=== PATIENT | female | born 1960 | race Two or more races ===

== ENCOUNTER 2023-10-04 09:27 | Day surgery (SDC) | payer OTHER ==
[2023-10-02 08:52] LABS: HEMATOCRIT 36.9 % (36.0-45.00); HEMOGLOBIN 12.2 g/dL (12.0-15.00); MEAN CELL VOLUME 83.3 fL (80.00-100.00); MEAN CORPUSCULAR HEMOGLOBIN 27.6 pg (27.00-32.0); MEAN CORPUSCULAR HGB CONC 33.1 g/dl (32.0-36.0); PLATELET COUNT 277 K/uL (150-450); RED BLOOD COUNT 4.43 M/uL (4.00-6.00)
[2023-10-02 09:18] LABS: URINE APPEARANCE Clear; URINE BILIRRUBIN Negative (NEGATIVE); URINE BLOOD Trace; URINE COLOR Yellow; URINE GLUCOSE Negative (NEGATIVE); URINE LEUKOCYTE Small; URINE NITRATE Negative; URINE PROTEIN Negative (NEGATIVE); URINE UROBILINOGEN 0.2 E.U./dl
[2023-10-02 09:20] LABS: INR < 0.93; PARTIAL THROMBOPLASTIN TIME 26.2 SECONDS (22.0-34.0); PROTHROMBIN TIME 9.8 SECONDS (9.0-11.5)
[2023-10-02 09:23] LABS: URINE BACTERIA 45.3 uL (0.0-1933); URINE EPITHELIAL CELLS 12.2 uL (0.0-38.8); URINE RBC 17.5 uL (0.0-20.8); URINE WBC 96.9 uL (0.0-23.2)
[2023-10-02 09:28] LABS: ALBUMIN 3.6 gm/dL (3.4-5.0); BILIRUBIN TOTAL 0.28 mg/dL (0.3-1.2); CALCIUM 9.9 mg/dL (8.5-10.1); CREATININE SERUM 0.66 mg/dL (0.55-1.02); GFR 90.16; GLOBULINA 4.6 G/DL (2.4-3.5); POTASSIUM 4.85 mEq/L (3.5-5.1); TOTAL PROTEIN 8.2 gm/dL (6.4-8.2)
[2023-10-02 09:37] LABS: URINE CRYSTALS FEW /HPF
[~2023-10-04 09:27] MED LIST: ADULT LOW DOSE81 M1; HORIZANT300 MG; HUMALOG100 UNIT/2 SUBCUTANEO; HYDROCHLOROTHIA25 MG PO; LANTUS SOL100 UNIT/1 SUBCUTANEO; LIPITOR80 MG PO; METFORMIN HCL1000 M2; NORVASC2.5 MG PO; PLAVIX75 MG PO; TRADJENTA5 MG PO; ZESTRIL40 M1
[2023-10-04] MEDS ORDERED: LIDOCAINE HCL 1%/EPINEPHRINE 20ML VIAL IJ ONE (13:15)
[2023-10-04] MEDS ORDERED: HEPARIN SODIUM,PORCINE 500 UNITS/5 ML VIAL IV ONE (13:15)
[2023-10-04] MEDS ORDERED: LIDOCAINE HCL 1% 20ML VIAL IJ ONE (13:15)
[2023-10-04] MEDS ORDERED: CEFAZOLIN SODIUM 1,000 MG VIAL IV ONE (13:15)
== END 2023-10-04 16:10 | disposition home or self-care (01) ==
LOC: CIR.AMB 09:27
PROVIDERS: ATTEND Surgery
DX: C18.9 Malignant neoplasm of colon, unspecified (principal); I10 Essential (primary) hypertension
CPT/HCPCS: 36561; C1751